=== PATIENT | female | born 1965 | race Two or more races ===

== ENCOUNTER 2018-03-11 23:37 | Emergency (ER) | payer SELFPAY ==
[2018-03-12 00:17] LABS: URINE HCG POC HCG NEGATIVE (Negative)
[2018-03-12 00:20] LABS: BILIRUBIN,URINE NEGATIVE (NEG); CLARITY,URINE TURBID; COLOR,URINE YELLOW; GLUCOSE,URINE 100 mg/dL (NEG); NITRITE,URINE NEGATIVE (NEG); PROTEIN,URINE 30 mg/dL (NEG-TRACE)
[2018-03-12] MEDS: metroNIDAZOLE 500 MG TABLET PO (00:30)
[2018-03-12] MEDS: AZITHROMYCIN 250 MG TABLET. PO (00:30)
[2018-03-12] MEDS: cefTRIAXone IM 250 MG VIAL IM (00:30)
[2018-03-12 00:36] LABS: BACTERIA,URINE MANY /HPF (0-FEW); SQUAMOUS EPITHELIAL CELL,UR FEW /LPF; WBC,URINE >40 /HPF (0-4)
[2018-03-12] MEDS: oxyCODONE/APAP 5/325 1 TAB TABLET PO (00:40)
== END 2018-03-12 00:43 | disposition home or self-care (01) ==
LOC: ER 03-12 00:43
DX: N73.9 Female pelvic inflammatory disease, unspecified (principal); E11.9 Type 2 diabetes mellitus without complications; E78.00 Pure hypercholesterolemia, unspecified; Z87.440 Personal history of urinary (tract) infections
CPT/HCPCS: 81001; 81025; 87086; 87491; 87591; 96372; 99284; J0696; Q0144

== ENCOUNTER 2019-03-17 21:46 | Emergency (ER) | payer SELFPAY ==
[~2019-03-17] VITALS: Ht 147.3 cm; Wt 59.0 kg
[~2019-03-17 21:46] MED LIST: DOXY100C14 PO; LEVO500T59 PO; METR500T PO
[2019-03-17] MEDS ORDERED: IV NORMAL SALINE 1000ML BAG 1,000 ML IV SCH (22:06)
[2019-03-17 22:15] LABS: BILIRUBIN,URINE SMALL (NEG); CLARITY,URINE CLOUDY; COLOR,URINE RED; NITRITE,URINE NEGATIVE (NEG); PROTEIN,URINE 100 mg/dL (NEG-TRACE)
[2019-03-17] MEDS ORDERED: fentaNYL PF VIAL 100 MCG/2 ML VIAL IV PRN (22:15)
[2019-03-17 22:16] LABS: BASO % 0 % (0-3); EOS # 0.1 x10^3/uL (0.0-0.7); EOS % 1 % (0-3); HEMATOCRIT 43.8 % (36.0-47.0); HEMOGLOBIN 15.1 g/dL (12.0-15.5); LYMPH # 1.2 x10^3/uL (1.0-4.8); LYMPH % 12 % (24-48); MEAN CORPUSCULAR HEMOGLOBIN 30 pg (25-35); MEAN CORPUSCULAR HGB CONC 34 g/dL (31-37); MEAN CORPUSCULAR VOLUME 87 fL (79-100); MONO # 0.3 x10^3/uL (0.0-1.1); MONO % 4 % (0-9); NEUT % 83 % (31-73); PLATELET COUNT 272 x10^3/uL (140-400); RED BLOOD COUNT 5.01 x10^6/uL (3.50-5.40); RED CELL DISTRIBUTION WIDTH 12.7 % (11.5-14.5); WHITE BLOOD COUNT 9.6 x10^3/uL (4.0-11.0)
[2019-03-17 22:22] LABS: RBC,URINE TNTC /HPF (0-2); SQUAMOUS EPITHELIAL CELL,UR MOD /LPF
[2019-03-17 22:23] LABS: AMORPHOUS SEDIMENT,UR PRESENT /HPF; BACTERIA,URINE FEW /HPF (0-FEW)
[2019-03-17 22:27] LABS: CALCIUM 9.1 mg/dL (8.5-10.1); CREATININE 0.7 mg/dL (0.6-1.0); GFR 88.2; POTASSIUM 3.4 mmol/L (3.5-5.1)
[2019-03-17] MEDS ORDERED: ONDANSETRON PF 4 MG/2 ML VIAL. IV ONE (22:30)
[2019-03-17 22:32] LABS: TOTAL BILIRUBIN 0.5 mg/dL (0.2-1.0)
[2019-03-17] MEDS ORDERED: CONTRAST GIVEN. MC PRN (22:45)
[2019-03-17] MEDS ORDERED: IOHEXOL 300 MG/ML 100ML VIAL. IV ONE (23:00)
--- NOTE | 2019-03-17 23:56 | RAD ---
CT abdomen and pelvis with contrast: Reason for examination: Abdominal pain with nausea and vomiting. Helical images were obtained through the abdomen pelvis with intravenous administration of 75 cc Omnipaque 300. Reconstruction was performed in sagittal and coronal planes. Exposure: One or more of the following individualized dose reduction techniques were utilized for this examination: 1. Automated exposure control 2. Adjustment of the mA and/or kV according to patient size 3. Use of iterative reconstruction technique. The lung bases are clear. The heart size is normal with no pericardial effusion seen. No focal lesions are seen at the liver, gallbladder, spleen, adrenal glands or pancreas. There is a small splenule anterior lateral to the spleen. The abdominal aorta and inferior vena cava show no abnormalities. The colon shows no diverticulosis, diverticulitis or colitis. The appendix is not identified. The stomach is not distended and shows no abnormal wall thickening or obstruction. The small intestinal tract shows some mild dilatation proximally but no wall thickening or apparent obstruction. The kidneys show no renal masses, renal calculi, hydronephrosis or evidence of obstructive uropathy. No abnormality seen at the bladder, uterus or ovaries. No free fluid or free air seen in the abdomen or pelvis. No acute bony abnormalities are seen. IMPRESSION: Mild dilatation of the proximal small intestinal tract but no bowel obstruction evident. No other focal abnormality seen in the abdomen or pelvis. Electronically signed by: Leann Womack MD (03/17/2019 11:53 PM) [facility]
[2019-03-18] MEDS ORDERED: ONDA4TAB7 PO (00:02)
--- NOTE | 2019-03-18 00:02 | PHYS DOC ---
Past Medical History Past Medical History: Diabetes-Type II, High Cholesterol, Hypertension Past Surgical History: Appendectomy Alcohol Use: Occasionally Drug Use: None Adult General Chief Complaint Chief Complaint: ABDOMINAL PAIN HPI HPI Patient is a 53-year-old female who presents with complaint of generalized abdominal pain that started approximately 1 hour prior to arrival. Patient has had nausea but no vomiting. Patient's last bowel movement was yesterday. She denies any chest pain or shortness of breath. She rates her pain at a 9 out of 10. Patient states that symptoms are not improved with anything. She states pain is worsened with movement and palpation. Patient has had no fever.[] Review of Systems Review of Systems Constitutional: Denies fever or chills [] Respiratory: Denies cough or shortness of breath [] Cardiovascular: No additional information not addressed in HPI [] GI: Complains of abdominal pain with nausea. Denies vomiting or diarrhea [] : Denies dysuria or hematuria [] Neurologic: Denies headache, focal weakness or sensory changes [] All other systems were reviewed and found to be within normal limits, except as documented in this note. Current Medications Current Medications Current Medications Medications (Trade) Dose Ordered Sig/Geraldo Start Time Stop Time Status Last Admin Dose Admin Acetaminophen/ Hydrocodone Bitart (Lortab 5/325) 1 tab 1X ONCE 03/18/19 00:30 03/18/19 00:30 DC 03/18/19 00:14 1 TAB Fentanyl Citrate (Fentanyl 2ml Vial) 25 mcg PRN Q15MIN PRN 03/17/19 22:15 03/18/19 00:22 DC 03/17/19 22:25 25 MCG Info (CONTRAST GIVEN -- Rx MONITORING) 1 each PRN DAILY PRN 03/17/19 22:45 03/18/19 00:22 DC Iohexol (Omnipaque 300 Mg/ml) 75 ml 1X ONCE 03/17/19 23:00 03/17/19 23:01 DC 03/17/19 22:50 75 ML Ondansetron HCl (Zofran) 4 mg 1X ONCE 03/17/19 22:30 03/17/19 22:31 DC 03/17/19 22:26 4 MG Sodium Chloride 1,000 ml @ 1,000 mls/hr Q1H 03/17/19 22:06 03/17/19 23:05 DC 03/17/19 22:25 1,000 MLS/HR Allergies Allergies Allergies Coded Allergies Type Severity Reaction Last Updated Verified No Known Drug Allergies 08/15/14 No Physical Exam Physical Exam Constitutional: Well developed, well nourished, no acute distress, non-toxic appearance. [] HENT: Normocephalic, atraumatic, bilateral external ears normal, oropharynx moist, no oral exudates, nose normal. [] Eyes: PERRLA, EOMI, conjunctiva normal, no discharge. [] Neck: Normal range of motion, no tenderness, supple, no stridor. [] Cardiovascular:Heart rate regular rhythm, no murmur [] Lungs & Thorax: Bilateral breath sounds clear to auscultation [] Abdomen: Bowel sounds normal, soft, with moderate generalized abdominal tenderness, greatest in the mid to upper abdomen. [] Skin: Warm, dry, no erythema, no rash. [] Extremities: No tenderness, no cyanosis, no clubbing, ROM intact, no edema. [] Neurologic: Alert and oriented X 3, no focal deficits noted. [] Current Patient Data Vital Signs Vital Signs Date Time Temp Pulse Resp B/P (MAP) Pulse Ox O2 Delivery O2 Flow Rate FiO2 03/18/19 00:19 98 20 134/82 (99) 98 Room Air 03/17/19 22:08 98.1 98.1 Lab Values Laboratory Tests Test 03/17/19 21:56 03/17/19 22:00 Urine Collection Type Unknown Urine Color Red Urine Clarity Cloudy Urine pH 5.0 Urine Specific [place] >=1.030 Urine Protein 100 mg/dL (NEG-TRACE) Urine Glucose (UA) Negative mg/dL (NEG) Urine Ketones (Stick) 15 mg/dL (NEG) Urine Blood Large (NEG) Urine Nitrite Negative (NEG) Urine Bilirubin Small (NEG) Urine Urobilinogen Dipstick 1.0 mg/dL (0.2 mg/dL) Urine Leukocyte Esterase Small (NEG) Urine RBC Tntc /HPF (0-2) Urine WBC 5-10 /HPF (0-4) Urine Squamous Epithelial Cells Mod /LPF Urine Amorphous Sediment Present /HPF Urine Bacteria Few /HPF (0-FEW) Urine Mucus Mod /LPF White Blood Count 9.6 x10^3/uL (4.0-11.0) Red Blood Count 5.01 x10^6/uL (3.50-5.40) Hemoglobin 15.1 g/dL (12.0-15.5) Hematocrit 43.8 % (36.0-47.0) Mean Corpuscular Volume 87 fL (79-100) Mean Corpuscular Hemoglobin 30 pg (25-35) Mean Corpuscular Hemoglobin Concent 34 g/dL (31-37) Red Cell Distribution Width 12.7 % (11.5-14.5) Platelet Count 272 x10^3/uL (140-400) Neutrophils (%) (Auto) 83 % (31-73) H Lymphocytes (%) (Auto) 12 % (24-48) L Monocytes (%) (Auto) 4 % (0-9) Eosinophils (%) (Auto) 1 % (0-3) Basophils (%) (Auto) 0 % (0-3) Neutrophils # (Auto) 8.0 x10^3uL (1.8-7.7) H Lymphocytes # (Auto) 1.2 x10^3/uL (1.0-4.8) Monocytes # (Auto) 0.3 x10^3/uL (0.0-1.1) Eosinophils # (Auto) 0.1 x10^3/uL (0.0-0.7) Basophils # (Auto) 0.0 x10^3/uL (0.0-0.2) POC Urine HCG, Qualitative Hcg negative (Negative) Sodium Level 139 mmol/L (136-145) Potassium Level 3.4 mmol/L (3.5-5.1) L Chloride Level 101 mmol/L (98-107) Carbon Dioxide Level 27 mmol/L (21-32) Anion Gap 11 (6-14) Blood Urea Nitrogen 15 mg/dL (7-20) Creatinine 0.7 mg/dL (0.6-1.0) Estimated GFR (Cockcroft-Gault) 88.2 BUN/Creatinine Ratio 21 (6-20) H Glucose Level 233 mg/dL (70-99) H Calcium Level 9.1 mg/dL (8.5-10.1) Total Bilirubin 0.5 mg/dL (0.2-1.0) Aspartate Amino Transferase (AST) 18 U/L (15-37) Alanine Aminotransferase (ALT) 33 U/L (14-59) Alkaline Phosphatase 120 U/L (46-116) H Total Protein 8.0 g/dL (6.4-8.2) Albumin 4.0 g/dL (3.4-5.0) Albumin/Globulin Ratio 1.0 (1.0-1.7) Lipase 113 U/L (73-393) Laboratory Tests 03/17/19 22:00 Laboratory Tests 03/17/19 22:00 EKG EKG [] Radiology/Procedures Radiology/Procedures [] Impressions: PROCEDURE: CT ABD PELV W/ IV CONTRST ONLY CT abdomen and pelvis with contrast: Reason for examination: Abdominal pain with nausea and vomiting. Helical images were obtained through the abdomen pelvis with intravenous administration of 75 cc Omnipaque 300. Reconstruction was performed in sagittal and coronal planes. Exposure: One or more of the following individualized dose reduction techniques were utilized for this examination: 1. Automated exposure control 2. Adjustment of the mA and/or kV according to patient size 3. Use of iterative reconstruction technique. The lung bases are clear. The heart size is normal with no pericardial effusion seen. No focal lesions are seen at the liver, gallbladder, spleen, adrenal glands or pancreas. There is a small splenule anterior lateral to the spleen. The abdominal aorta and inferior vena cava show no abnormalities. The colon shows no diverticulosis, diverticulitis or colitis. The appendix is not identified. The stomach is not distended and shows no abnormal wall thickening or obstruction. The small intestinal tract shows some mild dilatation proximally but no wall thickening or apparent obstruction. The kidneys show no renal masses, renal calculi, hydronephrosis or evidence of obstructive uropathy. No abnormality seen at the bladder, uterus or ovaries. No free fluid or free air seen in the abdomen or pelvis. No acute bony abnormalities are seen. IMPRESSION: Mild dilatation of the proximal small intestinal tract but no bowel obstruction evident. No other focal abnormality seen in the abdomen or pelvis. Electronically signed by: Leann Womack MD (03/17/2019 11:53 PM) [facility] Course & Med Decision Making Course & Med Decision Making Pertinent Labs and Imaging studies reviewed. (See chart for details) [] Dragon Disclaimer Dragon Disclaimer This electronic medical record was generated, in whole or in part, using a voice recognition dictation system. Departure Departure Impression: Primary Impression: Enteritis Disposition: 01 HOME, SELF-CARE Condition: STABLE Referrals: NO PCP (PCP) Patient Instructions: Viral Gastroenteritis Scripts Hydrocodone/Apap 5-325 (NORCO 5-325 TABLET) 1 Each Tablet 1-2 EACH PO PRN Q6HRS PRN for PAIN, #15 as needed for pain Prov: CARTER CALVIN Jr. DO 03/18/19 Ondansetron Hcl (ZOFRAN) 4 Mg Tablet 4 MG PO PRN TID PRN for NAUSEA/VOMITING, #15 nausea/vomiting Prov: CARTER CALVIN Jr. DO 03/18/19 CARTER CALVIN Jr. DO Mar 18, 2019 00:02
[2019-03-18] MEDS ORDERED: HYDR-3164 PO (00:07)
[2019-03-18 00:19] VITALS: BP 134/82
[2019-03-18] MEDS ORDERED: HYDROcodone/APAP 5/325MG 1 TAB TABLET PO ONE (00:30)
--- NOTE | 2019-03-18 08:27 | EKG ---
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
== END 2019-03-18 00:22 | disposition home or self-care (01) ==
LOC: ER 21:46
DX: K52.89 Other specified noninfective gastroenteritis and colitis (principal); E11.9 Type 2 diabetes mellitus without complications; E78.00 Pure hypercholesterolemia, unspecified; I10 Essential (primary) hypertension; Z90.89 Acquired absence of other organs
CPT/HCPCS: 36415; 74177; 80053; 81001; 81025; 83690; 85025; 87086; 93005; 96361; 96374; 96375; 99285; J2405; J3010; J7030; Q9967

== ENCOUNTER 2019-05-13 13:00 | Emergency (ER) | payer SELFPAY ==
[~2019-05-13] VITALS: Ht 147.3 cm; Wt 57.2 kg
[~2019-05-13 13:00] MED LIST changes: +HYDR-3164 PO; +ONDA4TAB7 PO
[2019-05-13] MEDS ORDERED: KETOROLAC 30 MG/ML VIAL. IV ONE (13:45)
[2019-05-13 13:54] LABS: BASO % 1 % (0-3); EOS # 0.1 x10^3/uL (0.0-0.7); EOS % 2 % (0-3); HEMATOCRIT 38.8 % (36.0-47.0); HEMOGLOBIN 13.5 g/dL (12.0-15.5); LYMPH # 2.1 x10^3/uL (1.0-4.8); LYMPH % 37 % (24-48); MEAN CORPUSCULAR HEMOGLOBIN 30 pg (25-35); MEAN CORPUSCULAR HGB CONC 35 g/dL (31-37); MEAN CORPUSCULAR VOLUME 87 fL (79-100); MONO # 0.4 x10^3/uL (0.0-1.1); MONO % 6 % (0-9); NEUT % 54 % (31-73); PLATELET COUNT 259 x10^3/uL (140-400); RED BLOOD COUNT 4.46 x10^6/uL (3.50-5.40); RED CELL DISTRIBUTION WIDTH 12.9 % (11.5-14.5); WHITE BLOOD COUNT 5.6 x10^3/uL (4.0-11.0)
[2019-05-13 14:18] LABS: CREATININE 0.7 mg/dL (0.6-1.0); GFR 87.9; POTASSIUM 3.8 mmol/L (3.5-5.1)
--- NOTE | 2019-05-13 14:20 | RAD ---
CHEST AP ONLY History: Chest pain. No prior study for comparison. The heart size is not enlarged. No evidence of pneumothorax, pleural effusion or infiltrate. IMPRESSION: No evidence of consolidating infiltrate. Electronically signed by: Dez Landin MD (05/13/2019 2:16 PM) [facility]
[2019-05-13 14:24] LABS: ALBUMIN 3.4 g/dL (3.4-5.0); ALBUMIN/GLOBULIN RATIO 0.9 (1.0-1.7); TOTAL BILIRUBIN 0.4 mg/dL (0.2-1.0)
--- NOTE | 2019-05-13 14:39 | EKG ---
[facility] [address] [place] [address] Test Date: 2019-05-13 Test Time: 13:13:44 Pat Name: GREGORIO SEAY Department: Room: Gender: F [employer] [place] [employer]: : 1965 Requested By: MITCH PRADO Order Number: [id number] Reading MD: Measurements Intervals [place] Rate: 74 P: 55 VT: 186 QRS: 2 QRSD: 72 T: 37 QT: 354 QTc: 393 Interpretive Statements SINUS RHYTHM LEFT ATRIAL ABNORMALITY QRS(T) CONTOUR ABNORMALITY CONSIDER INFERIOR MYOCARDIAL DAMAGE ABNORMAL ECG RI6.01 No previous ECG available for comparison
[2019-05-13] MEDS ORDERED: NAPR-514 PO (15:15)
--- NOTE | 2019-05-13 15:15 | PHYS DOC ---
Past Medical History Past Medical History: Diabetes-Type II, High Cholesterol, Hypertension Past Surgical History: Appendectomy Alcohol Use: Occasionally Drug Use: None Adult General Chief Complaint Chief Complaint: CHEST WALL PAIN HPI HPI 54-year-old female presents with sharp left-sided chest pain. She states her rib cage is tender to touch. She also states it hurts when she takes a deep breath. She has had a little bit of a cough and it hurts when she coughs as well. She states her cough has been nonproductive. She denies any hemoptysis. She denies any leg swelling or pain. She denies any shortness of breath or dyspnea on exertion.] Review of Systems Review of Systems Constitutional: Denies fever or chills [] Eyes: Denies change in visual acuity, redness, or eye pain [] HENT: Denies nasal congestion or sore throat [] Respiratory: Denies cough or shortness of breath [] Cardiovascular: No additional information not addressed in HPI [] GI: Denies abdominal pain, nausea, vomiting, bloody stools or diarrhea [] : Denies dysuria or hematuria [] Musculoskeletal: Denies back pain or joint pain [] Integument: Denies rash or skin lesions [] Neurologic: Denies headache, focal weakness or sensory changes [] Endocrine: Denies polyuria or polydipsia [] All other systems were reviewed and found to be within normal limits, except as documented in this note. Current Medications Current Medications Current Medications Medications (Trade) Dose Ordered Sig/Geraldo Start Time Stop Time Status Last Admin Dose Admin Ketorolac Tromethamine (Toradol 30mg Vial) 30 mg 1X ONCE 05/13/19 13:45 05/13/19 13:46 DC 05/13/19 14:21 30 MG Allergies Allergies Allergies Coded Allergies Type Severity Reaction Last Updated Verified No Known Drug Allergies 08/15/14 No Physical Exam Physical Exam Constitutional: Well developed, well nourished, mild to moderate distress, non- toxic appearance. [] HENT: Normocephalic, atraumatic, bilateral external ears normal, oropharynx moist, no oral exudates, nose normal. [] Eyes: PERRLA, EOMI, conjunctiva normal, no discharge. [] Neck: Normal range of motion, no tenderness, supple, no stridor. [] Cardiovascular:Heart rate regular rhythm, no murmur [] Lungs & Thorax: Chest is very tender along the left sternal border reproduces the pain[] Abdomen: Bowel sounds normal, soft, no tenderness, no masses, no pulsatile masses. [] Skin: Warm, dry, no erythema, no rash. [] Back: No tenderness, no CVA tenderness. [] Extremities: No tenderness, no cyanosis, no clubbing, ROM intact, no edema. [] Neurologic: Alert and oriented X 3, normal motor function, normal sensory function, no focal deficits noted. [] Psychologic: Anxious[] Current Patient Data Vital Signs Vital Signs Date Time Temp Pulse Resp B/P (MAP) Pulse Ox O2 Delivery O2 Flow Rate FiO2 05/13/19 15:25 70 16 118/73 (88) 99 Room Air 05/13/19 13:07 97.9 97.9 Lab Values Laboratory Tests Test 05/13/19 13:25 White Blood Count 5.6 x10^3/uL (4.0-11.0) Red Blood Count 4.46 x10^6/uL (3.50-5.40) Hemoglobin 13.5 g/dL (12.0-15.5) Hematocrit 38.8 % (36.0-47.0) Mean Corpuscular Volume 87 fL (79-100) Mean Corpuscular Hemoglobin 30 pg (25-35) Mean Corpuscular Hemoglobin Concent 35 g/dL (31-37) Red Cell Distribution Width 12.9 % (11.5-14.5) Platelet Count 259 x10^3/uL (140-400) Neutrophils (%) (Auto) 54 % (31-73) Lymphocytes (%) (Auto) 37 % (24-48) Monocytes (%) (Auto) 6 % (0-9) Eosinophils (%) (Auto) 2 % (0-3) Basophils (%) (Auto) 1 % (0-3) Neutrophils # (Auto) 3.0 x10^3/uL (1.8-7.7) Lymphocytes # (Auto) 2.1 x10^3/uL (1.0-4.8) Monocytes # (Auto) 0.4 x10^3/uL (0.0-1.1) Eosinophils # (Auto) 0.1 x10^3/uL (0.0-0.7) Basophils # (Auto) 0.0 x10^3/uL (0.0-0.2) D-Dimer (Shannan) 0.31 ug/mlFEU (0.00-0.50) Sodium Level 143 mmol/L (136-145) Potassium Level 3.8 mmol/L (3.5-5.1) Chloride Level 105 mmol/L (98-107) Carbon Dioxide Level 28 mmol/L (21-32) Anion Gap 10 (6-14) Blood Urea Nitrogen 12 mg/dL (7-20) Creatinine 0.7 mg/dL (0.6-1.0) Estimated GFR (Cockcroft-Gault) 87.9 BUN/Creatinine Ratio 17 (6-20) Glucose Level 310 mg/dL (70-99) H Calcium Level 9.0 mg/dL (8.5-10.1) Total Bilirubin 0.4 mg/dL (0.2-1.0) Aspartate Amino Transferase (AST) 16 U/L (15-37) Alanine Aminotransferase (ALT) 32 U/L (14-59) Alkaline Phosphatase 81 U/L (46-116) Troponin I Quantitative < 0.017 ng/mL (0.000-0.055) Total Protein 7.0 g/dL (6.4-8.2) Albumin 3.4 g/dL (3.4-5.0) Albumin/Globulin Ratio 0.9 (1.0-1.7) L Laboratory Tests 05/13/19 13:25 Laboratory Tests 05/13/19 13:25 EKG EKG [] Interpretation Time: EKG: Normal sinus rhythm rate of [address]-T changes Radiology/Procedures Radiology/Procedures [] Impressions: REASON: chest pain PROCEDURE: CHEST AP ONLY CHEST AP ONLY History: Chest pain. No prior study for comparison. The heart size is not enlarged. No evidence of pneumothorax, pleural effusion or infiltrate. IMPRESSION: No evidence of consolidating infiltrate. Course & Med Decision Making Course & Med Decision Making Pertinent Labs and Imaging studies reviewed. (See chart for details) [ED course: Evaluation reveals a 54-year-old female with sharp left-sided chest pain that is reproducible on physical exam. Her chest x-ray EKG and laboratory studies were unremarkable. Expectedly, her glucose is elevated and I did explain this to the patient. I let her know that she would likely need a more intense diabetic medical regimen. Patient's heart score is 2 placing her at very low risk. I feel she is safe for discharge home.] Ana Disclaimer Ana Disclaimer This electronic medical record was generated, in whole or in part, using a voice recognition dictation system. Departure Departure Impression: Primary Impression: Costochondritis, acute Disposition: HOME, SELF-CARE Condition: STABLE Referrals: NO PCP (PCP) Patient Instructions: Costochondritis Additional Instructions: Follow with your primary care physician this week for recheck. Scripts Naproxen (NAPROXEN) 500 Mg Tablet 1 TAB PO BID PRN for PAIN, #30 TAB 1 Refill Prov: MITCH PRADO DO 05/13/19 MICTH PRADO DO May 13, 2019 15:15
[2019-05-13 15:25] VITALS: BP 118/73
== END 2019-05-13 15:30 | disposition home or self-care (01) ==
LOC: ER 13:00
DX: M94.0 Chondrocostal junction syndrome [Tietze] (principal); E11.9 Type 2 diabetes mellitus without complications; E78.00 Pure hypercholesterolemia, unspecified; I10 Essential (primary) hypertension; F41.9 Anxiety disorder, unspecified; Z90.89 Acquired absence of other organs
CPT/HCPCS: 36415; 71045; 80053; 84484; 85025; 85379; 93005; 96374; 99285; J1885

== ENCOUNTER 2019-10-22 12:05 | Emergency (ER) | payer SELFPAY ==
[~2019-10-22] VITALS: Ht 147.3 cm; Wt 57.2 kg
[~2019-10-22 12:05] MED LIST changes: +NAPR-514 PO
[2019-10-22 12:50] VITALS: BP 132/60
--- NOTE | 2019-10-22 13:44 | PHYS DOC ---
Past Medical History Past Medical History: Diabetes-Type II, High Cholesterol, Hypertension (JOEY SALGADO APRN) Past Surgical History: Appendectomy (JOEY SALGADO APRN) Alcohol Use: Occasionally Drug Use: Marijuana (JOEY SALGADO APRN) Adult General Chief Complaint Chief Complaint: LOWER EXT PAIN HPI HPI Patient is a 54 year old female who presents with left upper leg pain that started yesterday. She used Biofreeze on it last night and that helped the pain. She states the pain returned to day. (JOEY SALGADO APRN) Review of Systems Review of Systems Constitutional: Denies fever or chills [] Eyes: Denies change in visual acuity, redness, or eye pain [] HENT: Denies nasal congestion or sore throat [] Respiratory: Denies cough or shortness of breath [] Cardiovascular: No additional information not addressed in HPI [] : Denies dysuria or hematuria [] Musculoskeletal: Reports L leg pain. Integument: Denies rash or skin lesions [] Neurologic: Denies headache, focal weakness or sensory changes [] Endocrine: Denies polyuria or polydipsia [] Complete systems were reviewed and found to be within normal limits, except as documented in this note. (JOEY SALGADO APRN) Allergies Allergies Allergies Coded Allergies Type Severity Reaction Last Updated Verified No Known Drug Allergies 08/15/14 No (ISRA GTZ MD) Physical Exam Physical Exam Constitutional: Well developed, well nourished, no acute distress, non-toxic appearance. [] HENT: Normocephalic, atraumatic, bilateral external ears normal, oropharynx moist, no oral exudates, nose normal. [] Eyes: PERRLA, EOMI, conjunctiva normal, no discharge. [] Neck: Normal range of motion, no tenderness, supple, no stridor. [] Skin: Warm, dry, no erythema, no rash. [] Musculoskeltal: Tenderness to Left thigh, ROM intact, no edema Neurologic: Alert and oriented X 3, normal motor function, normal sensory function, no focal deficits noted. [] Psychologic: Affect normal, judgement normal, mood normal. [] (JOEY SALGADO APRN) Current Patient Data Vital Signs Vital Signs Date Time Temp Pulse Resp B/P (MAP) Pulse Ox O2 Delivery O2 Flow Rate FiO2 10/22/19 12:50 97.8 74 16 132/60 (84) 99 Room Air 97.8 (ISRA GTZ MD) EKG EKG [] (JOEY SALGADO APRN) Radiology/Procedures Radiology/Procedures [] (JOEY SALGADO APRN) Course & Med Decision Making Course & Med Decision Making Pertinent Labs and Imaging studies reviewed. (See chart for details) Appears to have musculoskeletal pain. A medical screening exam was performed on this patient and the patient does not appear to be having a medical emergency. Her symptoms are not of sufficient sev erity and within reasonable medical probability it is unlikely the absence of immediate medical attention would result in placing the health of the individual (or, with respect to a woman, the health of the woman or her unborn child) in serious jeopardy, serious impairment to bodily functions, or serious dysfunction of any bodily organ or part. If , the patient is not in labor (JOEY SALGADO APRN) Course & Med Decision Making Staff Physician Addendum: I was working in the ER during the course of this patient's visit. I was available for consultation as needed, but I was not directly involved in the care of this patient. (ISRA GTZ MD) Dragon Disclaimer Dragon Disclaimer This electronic medical record was generated, in whole or in part, using a voice recognition dictation system. (JOEY SALGADO APRN) Departure Departure Impression: Primary Impression: Encounter for medical screening examination Disposition: 01 HOME, SELF-CARE Condition: STABLE Referrals: UNKNOWN PCP NAME (PCP) Patient Instructions: Medical Screening Exam Additional Instructions: Thank you for visiting [facility]. We appreciate you trusting us with your care. If any additional problems come up don't hesitate to return to visit us. Please follow up with your primary care provider so they can plan additional care if needed and know about the problem that you had. If symptoms worsen come back to the Emergency Department. Any concerning symptoms that start such as chest pain, shortness of air, weakness or numbness on one side of the body, running high fevers or any other concerning symptoms return to the ER. JOEY SALGADO APRN Oct 22, 2019 13:44 ISRA GTZ MD Oct 23, 2019 07:56
== END 2019-10-22 14:10 | disposition home or self-care (01) ==
LOC: ER 12:05
DX: M79.652 Pain in left thigh (principal); E11.9 Type 2 diabetes mellitus without complications; E78.00 Pure hypercholesterolemia, unspecified; I10 Essential (primary) hypertension; Z90.89 Acquired absence of other organs; F12.90 Cannabis use, unspecified, uncomplicated
CPT/HCPCS: 99281

== ENCOUNTER 2020-10-10 20:54 | Emergency (ER) | payer SELFPAY | END 2020-10-10 22:04 | LOC: ER 20:54 | DX: M79.644 Pain in right finger(s) (principal); Z53.21 Procedure and treatment not carried out due to patient leaving prior to being seen by health care provider ==

== ENCOUNTER 2021-02-08 00:13 | Emergency (ER) | payer SELFPAY ==
[~2021-02-08] VITALS: Ht 147.3 cm; Wt 58.3 kg
--- NOTE | 2021-02-08 00:37 | PHYS DOC ---
Past Medical History Past Medical History: Diabetes-Type II, High Cholesterol, Hypertension Past Surgical History: Appendectomy Smoking Status: Light Tobacco Smoker Alcohol Use: Occasionally Drug Use: Marijuana General Adult EDM: Chief Complaint: ABDOMINAL PAIN HPI: HPI: Patient is a 55yo female presenting for abdominal pain. This is a chronic issue, has been present for >6mo. Reports being seen by PCP but "no one ever does anything for me". Eating makes worse, nothing known makes better. Timing of symptoms varies and inconsistent. Reports today's episode occurred and hour after eating dinner. No fever cp, shob, uti-like symptoms. Review of Systems: Review of Systems: Fourteen body systems of review of systems have been reviewed. See HPI for pertinent positives and negative responses, other mi all other systems are negative, non-pertinent or non-contributory Heart Score: C/O Chest Pain: No HEART Score for Chest Pain: HEART Score for Chest Pain Response (Comments) Value History Slighlty/Non-Suspicious 0 ECG Normal 0 Age >45 - < 65 1 Risk Factors >3 Risk Factors or Hx CAD 2 Troponin < Normal Limit 0 Total 3 Risk Factors: Risk Factors: DM, Current or recent (<one month) smoker, HTN, HLP, family history of CAD, obesity. Risk Scores: Score 0 - 3: 2.5% MACE over next 6 weeks - Discharge Home Score 4 - 6: 20.3% MACE over next 6 weeks - Admit for Clinical Observation Score 7 - 10: 72.7% MACE over next 6 weeks - Early Invasive Strategies Allergies: Allergies: Allergies Coded Allergies Type Severity Reaction Last Updated Verified No Known Drug Allergies 08/15/14 No Physical Exam: PE: Constitutional: Well developed, well nourished, no acute distress, non-toxic appearance. HENT: Normocephalic, atraumatic, bilateral external ears normal, oropharynx moist, no oral exudates, nose normal. Eyes: PERRLA, EOMI, conjunctiva normal, no discharge. Neck: Normal range of motion, no tenderness, supple, no stridor. Cardiovascular: Heart rate regular, sinus rhythm, no murmurs rubs or gallops Lungs & Thorax: Bilateral breath sounds clear to auscultation Abdomen: Bowel sounds normal, soft, RUQ tenderness with guarding but no rebound, no masses, no pulsatile masses. Nonsurgical abdomen, no peritoneal signs Skin: Warm, dry, no erythema, no rash. Back: No tenderness, no CVA tenderness. Extremities: No tenderness, no cyanosis, no clubbing, ROM intact, no edema. Neurologic: Alert and oriented X 3, grossly normal motor & sensory function, no focal deficits noted. Psychologic: Affect normal, judgement normal, mood normal. Current Patient Data: Labs: Current Medications Medications (Trade) Dose Ordered Sig/Geraldo Route PRN Reason Start Time Stop Time Status Last Admin Dose Admin Sodium Chloride 1,000 ml @ 1,000 mls/hr 1X ONCE IV 02/08/21 01:30 02/08/21 02:29 DC 02/08/21 01:29 Insulin Human Regular (HumuLIN R VIAL) 5 unit 1X ONCE IV 02/08/21 01:30 02/08/21 01:31 DC 02/08/21 01:31 Metoclopramide HCl (Reglan Vial) 10 mg 1X ONCE IVP 02/08/21 01:45 02/08/21 01:46 DC 02/08/21 01:48 Vital Signs: Vital Signs Date Time Temp Pulse Resp B/P (MAP) Pulse Ox O2 Delivery O2 Flow Rate FiO2 02/08/21 00:25 98.1 92 22 133/74 (93) 98 Room Air 98.1 Vital Signs Date Time Temp Pulse Resp B/P (MAP) Pulse Ox O2 Delivery O2 Flow Rate FiO2 02/08/21 02:27 96 21 104/49 (67) 96 Room Air 02/08/21 00:25 98.1 98.1 EKG: EKG: EKG ordered and interpreted by myself at 010 0 hours as sinus rhythm at 94 bpm, unremarkable intervals, left axis deviation, no ischemic findings, no STEMI Radiology/Procedures: Radiology/Procedures: INDICATION : Reason: RUQ PAIN / Spl. Instructions: / History: COMPARISON: None TECHNIQUE: Multiple ultrasound images obtained through the abdomen in grayscale and color. FINDINGS: Liver: Echogenic Gallbladder: Partially contracted without definite stones visualized. The patient does have some tenderness at right upper quadrant. IVC: Partially distended at level of liver. Common Bile Duct: Not dilated. Pancreas: No gross abnormality identified in visualized portions of pancreas. Right Kidney: No hydronephrosis. IMPRESSION: * Liver is echogenic. Nonspecific but can be seen with fatty infiltration. * Contracted gallbladder. Electronically signed by: Donnie Mistry MD (02/08/2021 1:36 AM) [id number] Course & Med Decision Making: Course & Med Decision Making VSS. HPI and PE concerning for RUQ pathology ER workup and US non-concerning for emergent/surgical findings. Discussed likely diagnosis of gastroparesis vs non-emergent gallbladder dysfunction Patient reponded to ER intervention, AP improved with IVF rehydration and improvement of FSBG. She is knowledgeable on diabetes and has insulin at home with good access to primary care physician Strict FSBG control advised. I also stressed need for outpatient surgery referral for additional evaluation of RUQ pain that is likely gallbladder dysf unction that has been chronic in nature, she might benefit from surgical removal Strict return precautions discussed with good understanding all questions and concerns addressed prior to departure Ana Disclaimer: Ana Disclaimer: This electronic medical record was generated, in whole or in part, using a voice recognition dictation system. Departure Departure Impression: Primary Impression: Abdominal pain Additional Impression: Type 2 diabetes mellitus with hyperglycemia Disposition: HOME / SELF CARE / HOMELESS Condition: IMPROVED Referrals: UNKNOWN PCP NAME (PCP) Patient Instructions: Abdominal Pain (Nonspecific), Hyperglycemia Additional Instructions: You have been evaluated in the Emergency Department today for abdominal pain. Your evaluation was not suggestive of any emergent condition requiring medical intervention at this time. However, some abdominal problems make take more time to appear. Therefore, it is important for you to watch for any new symptoms or worsening of your current condition. As disclosed, your blood sugar was high. This was likely causing some abdominal discomfort. You were given fluids and IV insulin. You need to continue home insulin therapy and keep strict control of your blood sugar, be sure to keep a fingerstick blood sugar log for review with your PCP In addition, you had right upper quadrant abdominal pain that was nonconcerning for acute gallbladder disease. If this pain persists, you will likely need outpatient referral to a specialist for continued work-up Please contact your PCP when they open today and review ER visit and discuss need for close outpatient follow-up for repeat evaluation in outpatient setting. Return to the Emergency Department if you experience worsening pain, persistent fevers greater than 100.4, recurrent vomiting, blood in vomit, blood in stool, dark tarry stool, chest pain, difficulty breathing, or any other concerning symptoms. PRETTY MELGAR DO February 08, 2021 00:37
[2021-02-08 01:00] LABS: BASO # 0.1 x10^3/uL (0.0-0.2); BASO % 1 % (0-3); EOS # 0.1 x10^3/uL (0.0-0.7); EOS % 1 % (0-3); HEMATOCRIT 41.2 % (36.0-47.0); HEMOGLOBIN 14.2 g/dL (12.0-15.5); LYMPH # 3.2 x10^3/uL (1.0-4.8); LYMPH % 35 % (24-48); MEAN CORPUSCULAR HEMOGLOBIN 30 pg (25-35); MEAN CORPUSCULAR HGB CONC 34 g/dL (31-37); MEAN CORPUSCULAR VOLUME 88 fL (79-100); MONO # 0.6 x10^3/uL (0.0-1.1); MONO % 7 % (0-9); NEUT # 5.2 x10^3/uL (1.8-7.7); NEUT % 57 % (31-73); PLATELET COUNT 277 x10^3/uL (140-400); RED BLOOD COUNT 4.66 x10^6/uL (3.50-5.40); RED CELL DISTRIBUTION WIDTH 13.2 % (11.5-14.5); WHITE BLOOD COUNT 9.1 x10^3/uL (4.0-11.0)
[2021-02-08 01:00] LABS: BILIRUBIN,URINE NEGATIVE (NEG); CLARITY,URINE CLEAR; COLOR,URINE YELLOW; NITRITE,URINE NEGATIVE (NEG); PH,URINE 6.5 (<5.0-8.0); PROTEIN,URINE NEGATIVE (NEG-TRACE); UROBILINOGEN,URINE 0.2 mg/dL (0.2 mg/dL)
--- NOTE | 2021-02-08 01:06 | EKG ---
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
[2021-02-08 01:09] LABS: BACTERIA,URINE 0 /HPF (0-FEW); RBC,URINE 0 /HPF (0-2); WBC,URINE OCC /HPF (0-4)
[2021-02-08 01:15] LABS: ALBUMIN 3.6 g/dL (3.4-5.0); ALBUMIN/GLOBULIN RATIO 1.1 (1.0-1.7); CALCIUM 9.2 mg/dL (8.5-10.1); CREATININE 1.1 mg/dL (0.6-1.0); POTASSIUM 4.1 mmol/L (3.5-5.1); TOTAL BILIRUBIN 0.2 mg/dL (0.2-1.0); TOTAL PROTEIN 6.8 g/dL (6.4-8.2)
[2021-02-08] MEDS ORDERED: IV NORMAL SALINE 1000ML BAG 1,000 ML IV ONE (01:30)
[2021-02-08] MEDS ORDERED: INSULIN REGULAR 100 UNIT/ML 3ML VIAL. IV ONE (01:30)
--- NOTE | 2021-02-08 01:38 | RAD ---
INDICATION : Reason: RUQ PAIN / Spl. Instructions: / History: COMPARISON: None TECHNIQUE: Multiple ultrasound images obtained through the abdomen in grayscale and color. FINDINGS: Liver: Echogenic Gallbladder: Partially contracted without definite stones visualized. The patient does have some tend erness at right upper quadrant. IVC: Partially distended at level of liver. Common Bile Duct: Not dilated. Pancreas: No gross abnormality identified in visualized portions of pancreas. Right Kidney: No hydronephrosis. IMPRESSION: * Liver is echogenic. Nonspecific but can be seen with fatty infiltration. * Contracted gallbladder. Electronically signed by: Donnie Mistry MD (02/08/2021 1:36 AM) [id number]
[2021-02-08] MEDS ORDERED: METOCLOPRAMIDE HCL 10 MG/2 ML VIAL. IVP ONE (01:45)
[2021-02-08 02:27] VITALS: BP 104/49
== END 2021-02-08 03:04 | disposition home or self-care (01) ==
LOC: ER 00:13
DX: R10.11 Right upper quadrant pain (principal); E11.65 Type 2 diabetes mellitus with hyperglycemia; E78.00 Pure hypercholesterolemia, unspecified; I10 Essential (primary) hypertension; Z72.0 Tobacco use; Z90.89 Acquired absence of other organs
CPT/HCPCS: 36415; 76705; 80053; 81001; 82962; 84484; 85025; 93005; 96361; 96374; 96375; 99285; J1815; J2765; J7030